=== PATIENT | male | born 1955 | race Caucasian/White ===

== ENCOUNTER 2022-10-28 07:11 | Emergency (ER) | payer BC ==
[~2022-10-28] VITALS: Ht 185.4 cm; Wt 106.0 kg
[~2022-10-28 07:11] MED LIST: AMIO200T67 PO; APIX5TAB3 PO; CARV-50 PO; LOSA50TA64 PO; SPIR25TA PO
[2022-10-28] MEDS ORDERED: LIDOcaine 1% W/epiNEPHrine 1:200,000 10ml vial IJ ONE (07:30)
[2022-10-28] MEDS ORDERED: LIDOCAINE 2%/EPI 1:100,000 inj. Multi-dose 20 ML VIAL IJ ONE (07:44)
[2022-10-28] MEDS ORDERED: tranexamic acid 100mg/ml inj. TP ONE (07:45)
[2022-10-28] MEDS ORDERED: Thrombin (Bovine) 5,000 unit vial TP ONE (08:11)
[2022-10-28 09:40] LABS: BASOPHILS # (AUTO) 0.1 X10'3 (0-0.2); BASOPHILS % (AUTO) 0.7 % (0-1); EOSINOPHILS # (AUTO) 0.2 X10'3 (0-0.9); HEMATOCRIT 34.5 % (42.0-52.0); HEMOGLOBIN 11.7 g/dl (14.0-17.9); LYMPHOCYTES # (AUTO) 1.1 X10'3 (1.1-4.8); LYMPHOCYTES % (AUTO) 12.8 % (21-51); MEAN CORPUSCULAR HEMOGLOBIN 31.4 PG (27.0-31.0); MEAN CORPUSCULAR HGB CONC 33.9 g/dL (33.0-36.5); MEAN CORPUSCULAR VOLUME 92.7 FL (78-98); MEAN PLATELET VOLUME 7.1 FL (7.4-10.4); MONOCYTES # (AUTO) 0.7 X10'3 (0-0.9); MONOCYTES % (AUTO) 8.4 % (2-12); NEUTROPHILS # (AUTO) 6.7 X10'3 (1.8-7.7); NEUTROPHILS % (AUTO) 76.1 % (42-75); PLATELET COUNT 286 X10'3 (140-440); RED BLOOD COUNT 3.72 X10'6 (4.70-6.10); RED CELL DISTRIBUTION WIDTH 13.8 % (11.5-14.5); WHITE BLOOD COUNT 8.8 X10'3 (4.5-11.0)
[2022-10-28] MEDS ORDERED: phytonadione inj. 5 MG in normal saline 100ml IV soln 100 ML IV ONE (10:15)
--- NOTE | 2022-10-28 10:46 | NUR ---
PT RESTING COMFORTABLY. LIGHTS DIMMED AT PTS REQUEST
[2022-10-28 12:30] VITALS: BP 109/72
== END 2022-10-28 12:32 | disposition home or self-care (01) ==
LOC: ER 07:11
DX: D68.9 Coagulation defect, unspecified (principal)
CPT/HCPCS: 36415; 41899; 85025; 85610; 96365; 99285; J3430; J3490

== ENCOUNTER 2024-02-29 11:30 | Day surgery (SDC) | payer MEDICARE ==
[~2024-02-29] VITALS: Ht 185.4 cm; Wt 106.3 kg
[2024-02-29] MEDS ORDERED: normal saline 1000ml 1,000 ML IV SCH (11:50)
[2024-02-29] MEDS ORDERED: SOTA80TA PO (12:26)
[2024-02-29] MEDS ORDERED: LOSA50TA64 PO (12:26)
[2024-02-29] MEDS ORDERED: WARF10TA45 PO (12:26)
[2024-02-29] MEDS ORDERED: SPIR25TA5 PO (12:26)
[2024-02-29] MEDS ORDERED: LOSA-415 PO (12:26)
[2024-02-29] MEDS ORDERED: CARV-50 PO (12:26)
[2024-02-29] MEDS ORDERED: ATOR40TA72 PO (12:26)
[2024-02-29] MEDS ORDERED: BUDE0.5A3 (12:26)
[2024-02-29 12:27] LABS: BASOPHILS % (AUTO) 0.6 % (0-1); EOSINOPHILS # (AUTO) 0.3 X10'3 (0-0.9); EOSINOPHILS % (AUTO) 3.2 % (0-6); HEMATOCRIT 46.1 % (42.0-52.0); HEMOGLOBIN 15.5 g/dl (14.0-17.9); LYMPHOCYTES # (AUTO) 1.7 X10'3 (1.1-4.8); LYMPHOCYTES % (AUTO) 20.6 % (21-51); MEAN CORPUSCULAR HEMOGLOBIN 30.9 PG (27.0-31.0); MEAN CORPUSCULAR HGB CONC 33.6 g/dL (33.0-36.5); MEAN PLATELET VOLUME 7.8 FL (7.4-10.4); MONOCYTES # (AUTO) 0.7 X10'3 (0-0.9); MONOCYTES % (AUTO) 8.7 % (2-12); NEUTROPHILS # (AUTO) 5.7 X10'3 (1.8-7.7); NEUTROPHILS % (AUTO) 66.9 % (42-75); PLATELET COUNT 271 X10'3 (140-440); RED BLOOD COUNT 5.01 X10'6 (4.70-6.10); RED CELL DISTRIBUTION WIDTH 14.7 % (11.5-14.5); WHITE BLOOD COUNT 8.5 X10'3 (4.5-11.0)
[2024-02-29 12:29] LABS: APTT 30 SECONDS (22-32); INR 1.8 INR
[2024-02-29 12:31] LABS: ALBUMIN 3.7 G/DL (3.4-5.0); ANION GAP 7 (8-16); BLOOD UREA NITROGEN 23 MG/DL (7-18); BUN/CREATININE RATIO 19.7 (10.0-20.0); CALCIUM 9.3 MG/DL (8.5-10.1); CHLORIDE 107 MMOL/L (99-107); CHOL/HDL RATIO 2.1 (0.00-4.99); CHOLESTEROL 111 MG/DL (0-200); CREATININE 1.17 MG/DL (0.60-1.10); GLUCOSE 97 MG/DL (70-104); HDL CHOLESTEROL 54 MG/DL (35-60); LDL CHOLESTEROL 48 MG/DL (50-100); POTASSIUM 4.5 MMOL/L (3.5-5.1); SODIUM 141 MMOL/L (135-145); TOTAL CARBON DIOXIDE 26.9 MMOL/L (24-32); TRIGLYCERIDES 59 MG/DL (20-135); eCRCL 67 ML/MIN; eGFR 62 ML/MIN
[2024-02-29] MEDS ORDERED: fentaNYL/PF 50MCG/1 ML 2ML syringe IV ONE (12:50)
[2024-02-29] MEDS ORDERED: MIDAZolam 1mg/ml 10ml vial IV ONE (12:50)
== END 2024-02-29 13:32 | disposition home or self-care (01) ==
LOC: SSTAY O 11:30
PROVIDERS: ATTEND Student in an Organized Health Care Education/Training Program
DX: I48.0 Paroxysmal atrial fibrillation (principal); Z53.8 Procedure and treatment not carried out for other reasons; I13.0 Hypertensive heart and chronic kidney disease with heart failure and stage 1 through stage 4 chronic kidney disease, or unspecified chronic kidney disease; N18.9 Chronic kidney disease, unspecified; I50.42 Chronic combined systolic (congestive) and diastolic (congestive) heart failure; I25.10 Atherosclerotic heart disease of native coronary artery without angina pectoris; E78.00 Pure hypercholesterolemia, unspecified; I42.0 Dilated cardiomyopathy; Z79.01 Long term (current) use of anticoagulants; Z79.899 Other long term (current) drug therapy
CPT/HCPCS: 36415; 80048; 80061; 85025; 85610; 85730; 93005; J7030

== ENCOUNTER 2024-04-17 10:23 | Emergency (ER) | payer MEDICARE ==
[~2024-04-17] VITALS: Ht 185.4 cm; Wt 106.8 kg
[~2024-04-17 10:23] MED LIST changes: -AMIO200T67 PO; -APIX5TAB3 PO; +ATOR40TA72 PO; +BUDE0.5A3; +LOSA-415 PO; +SOTA80TA PO; -SPIR25TA PO; +SPIR25TA5 PO; +WARF10TA45 PO
[2024-04-17] MEDS: metoprolol tartrate 1mg/ml inj IV ONE (11:02)
[2024-04-17 11:09] LABS: BASOPHILS # (AUTO) 0.1 X10'3 (0-0.2); EOSINOPHILS # (AUTO) 0.3 X10'3 (0-0.9); HEMATOCRIT 46.7 % (42.0-52.0); HEMOGLOBIN 16.2 g/dl (14.0-17.9); LYMPHOCYTES % (AUTO) 19.9 % (21-51); MEAN CORPUSCULAR HEMOGLOBIN 31.3 PG (27.0-31.0); MEAN CORPUSCULAR HGB CONC 34.8 g/dL (33.0-36.5); MEAN CORPUSCULAR VOLUME 89.9 FL (78-98); MEAN PLATELET VOLUME 7.9 FL (7.4-10.4); MONOCYTES # (AUTO) 0.9 X10'3 (0-0.9); MONOCYTES % (AUTO) 9.6 % (2-12); NEUTROPHILS # (AUTO) 6.5 X10'3 (1.8-7.7); NEUTROPHILS % (AUTO) 66.5 % (42-75); PLATELET COUNT 257 X10'3 (140-440); RED BLOOD COUNT 5.19 X10'6 (4.70-6.10); RED CELL DISTRIBUTION WIDTH 14.3 % (11.5-14.5); WHITE BLOOD COUNT 9.8 X10'3 (4.5-11.0)
[2024-04-17 11:25] LABS: ANION GAP 8 (8-16); BLOOD UREA NITROGEN 31 MG/DL (7-18); BUN/CREATININE RATIO 24.8 (10.0-20.0); CALCIUM 9.8 MG/DL (8.5-10.1); CHLORIDE 108 MMOL/L (99-107); CREATININE 1.25 MG/DL (0.60-1.10); GLUCOSE 118 MG/DL (70-104); POTASSIUM 4.1 MMOL/L (3.5-5.1); PRO BRAIN NATRIURETIC PEPTIDE 2720 PG/ML (0-125); SODIUM 143 MMOL/L (135-145); TOTAL CARBON DIOXIDE 26.9 MMOL/L (24-32); eCRCL 63 ML/MIN; eGFR 57 ML/MIN
[2024-04-17 13:22] VITALS: BP 108/90; PULSE 108; RESP 14; TEMP 97.9; O2SAT 97
== END 2024-04-17 13:28 | disposition home or self-care (01) ==
LOC: ER 10:23
DX: I48.20 Chronic atrial fibrillation, unspecified (principal); I50.9 Heart failure, unspecified; Z98.890 Other specified postprocedural states; Z79.899 Other long term (current) drug therapy
CPT/HCPCS: 36415; 71045; 80048; 83880; 84484; 85025; 93005; 96374; 99285; J3490

== ENCOUNTER 2024-04-18 10:47 | Day surgery (SDC) | payer MEDICARE ==
[2024-04-17 10:46] LABS: MEAN CORPUSCULAR HGB CONC 34.1 g/dL (33.0-36.5)
[2024-04-17 10:47] LABS: BASOPHILS # (AUTO) 0.1 X10'3 (0-0.2); BASOPHILS % (AUTO) 0.6 % (0-1); EOSINOPHILS # (AUTO) 0.3 X10'3 (0-0.9); EOSINOPHILS % (AUTO) 3.1 % (0-6); HEMATOCRIT 46.9 % (42.0-52.0); LYMPHOCYTES # (AUTO) 1.8 X10'3 (1.1-4.8); LYMPHOCYTES % (AUTO) 21.1 % (21-51); MEAN CORPUSCULAR HEMOGLOBIN 30.9 PG (27.0-31.0); MEAN CORPUSCULAR VOLUME 90.5 FL (78-98); MEAN PLATELET VOLUME 7.8 FL (7.4-10.4); MONOCYTES # (AUTO) 0.8 X10'3 (0-0.9); MONOCYTES % (AUTO) 9.6 % (2-12); NEUTROPHILS # (AUTO) 5.5 X10'3 (1.8-7.7); NEUTROPHILS % (AUTO) 65.6 % (42-75); PLATELET COUNT 243 X10'3 (140-440); RED BLOOD COUNT 5.19 X10'6 (4.70-6.10); RED CELL DISTRIBUTION WIDTH 14.1 % (11.5-14.5); WHITE BLOOD COUNT 8.4 X10'3 (4.5-11.0)
[2024-04-17 10:54] LABS: ALBUMIN 3.9 G/DL (3.4-5.0); ANION GAP 8 (8-16); BLOOD UREA NITROGEN 32 MG/DL (7-18); BUN/CREATININE RATIO 23.4 (10.0-20.0); CALCIUM 9.6 MG/DL (8.5-10.1); CHLORIDE 107 MMOL/L (99-107); CHOL/HDL RATIO 2.2 (0.00-4.99); CHOLESTEROL 122 MG/DL (0-200); CREATININE 1.37 MG/DL (0.60-1.10); GLUCOSE 122 MG/DL (70-104); HDL CHOLESTEROL 55 MG/DL (35-60); LDL CHOLESTEROL 60 MG/DL (50-100); SODIUM 144 MMOL/L (135-145); TOTAL CARBON DIOXIDE 29.2 MMOL/L (24-32); TRIGLYCERIDES 68 MG/DL (20-135); eGFR 52 ML/MIN
[2024-04-17 11:06] LABS: PROTHROMBIN TIME 40.8 SECONDS (9.0-12.0)
[2024-04-17 11:18] LABS: INR 4.2 INR
[2024-04-18] VITALS (12 sets, daily range): BP systolic 85–124; BP diastolic 56–91; PULSE 55–110; RESP 10–12; TEMP 98.2; O2SAT 94–100
[~2024-04-18] VITALS: Ht 185.4 cm; Wt 105.1 kg
[~2024-04-18 10:47] MED LIST changes: -LOSA-415 PO
[2024-04-18 11:47] LABS: INR 2.8 INR; PROTHROMBIN TIME 28.2 SECONDS (9.0-12.0)
[2024-04-18] MEDS: normal saline 1000ml 1,000 ML IV SCH (12:30)
[2024-04-18] MEDS: MIDAZolam 1mg/ml 10ml vial IV ONE (13:58)
[2024-04-18] MEDS: fentaNYL/PF 50MCG/1 ML 2ML syringe IV ONE (13:59)
== END 2024-04-18 17:15 | disposition home or self-care (01) ==
LOC: SSTAY O 10:47
PROVIDERS: ATTEND Student in an Organized Health Care Education/Training Program
DX: I48.91 Unspecified atrial fibrillation (principal); I47.20 Ventricular tachycardia, unspecified; I11.0 Hypertensive heart disease with heart failure; I42.0 Dilated cardiomyopathy; I25.10 Atherosclerotic heart disease of native coronary artery without angina pectoris; N18.9 Chronic kidney disease, unspecified; I27.20 Pulmonary hypertension, unspecified; I50.42 Chronic combined systolic (congestive) and diastolic (congestive) heart failure; Z79.899 Other long term (current) drug therapy; Z98.890 Other specified postprocedural states
CPT/HCPCS: 36415; 80048; 80061; 85025; 85610; 92960; 93005; J2250; J3010; J7030; Z7610